=== PATIENT | male | born 1990 | race Caucasian/White ===

== ENCOUNTER 2024-01-16 13:14 | Emergency (ER) | payer MEDICAID, SELFPAY ==
--- NOTE | ~2024-01-16 | CT_ITS ---
EXAMINATION: CT INNER EAR TEMPORAL BONES WITHOUT CONTRAST CLINICAL INFORMATION: Left-sided mastoid tenderness.. COMPARISON: None available. TECHNIQUE: Multidetector helical imaging of the temporal bones was performed in the axial plane without contrast. Generation of oblique axial and coronal reformatted projections. This CT examination was performed using dose optimization techniques as appropriate, variously including the following: *Automated exposure control. *Adjustment of mA and/or kV according to patient size (this includes techniques or standardized protocols for targeted exams where dose is matched to indication/reason for exam; i.e. extremities or head). *Use of iterative reconstruction technique. DLP: 330 mGy-cm FINDINGS: Right Temporal Bone: No periauricular soft tissue abnormalities. Small volume of amorphous material within the deep aspect of the external auditory canal suggestive of cerumen (not directly abutting the tympanic membrane). Otherwise, the external auditory canal is normal in appearance. The tympanic membrane is normal. The ossicular chain is intact. No soft tissue abnormality within the middle ear. The mastoid antrum and additional mastoid air cells remain well aerated. The sigmoid plate is intact. Normal ossification of the bony labyrinth. Normal appearance of the cochlea, vestibule, and semicircular canals. The vestibular aqueduct is normal. Normal appearance of the labyrinthine, geniculate, tympanic, and mastoid segments of the facial nerve. Normal appearance of the internal auditory canal. The cochlear aperture is normal. Normal appearance of the carotid canal and jugular foramen. Left Temporal Bone: Moderate edema of the left periauricular soft tissues without discrete drainable soft tissue collection. Moderate, slightly irregular, circumferential soft tissue thickening of the left external auditory canal. No overt osseous erosive changes. The tympanic membrane is partially obscured by abutting soft tissue attenuating material but largely appears intact.. The ossicular chain is intact. Moderate mucosal thickening/fluid throughout the middle ear cavity. The mastoid antrum remains well aerated. Small volume mastoid effusion throughout the remainder of the mastoid air cells. The sigmoid plate is intact. Normal ossification of the bony labyrinth. Normal appearance of the cochlea, vestibule, and semicircular canals. The vestibular aqueduct is normal. Normal appearance of the labyrinthine, geniculate, tympanic, and mastoid segments of the facial nerve. Normal appearance of the internal auditory canal. The cochlear aperture is normal. Normal appearance of the carotid canal and jugular foramen. Other: The temporomandibular joints are normal in appearance bilaterally. No demonstrated intracranial abnormalities of the visualized skull base. No significant abnormalities of the visualized orbits. Mild mucosal thickening of the paranasal sinuses. Mild leftward nasoseptal deviation. No abnormal contours of the visualized pharynx. CT/CT mastoid IMPRESSION: 1. Moderate edema of the left periauricular soft tissues with moderate soft tissue thickening of the left external auditory canal. No discrete drainable soft tissue collection nor osseous erosive changes. Moderate mucosal thickening/fluid throughout the left middle ear cavity. Findings are suggestive of otitis externa/media in the appropriate clinical setting. 2. Normal CT appearance of the right-sided temporal bone. Electronically signed by: Terrence Esteves DO 01/16/2024 03:50 PM EDT
[2024-01-16 13:39] VITALS: BP 162/99; PULSE 118; RESP 20; TEMP 39.2; O2SAT 99; BMI 42.8
--- NOTE | 2024-01-16 13:40 | ED.GENADULT ---
HPI - General Adult General Chief complaint: Ear Problems Stated complaint: ear swollen, burning sensation, loss of hearing Time Seen by Provider: 01/16/24 14:31 Source: patient Mode of arrival: ambulatory Limitations: no limitations History of Present Illness ED Provider: Benjamin Slater PA-C HPI narrative: 33-year-old male presents the ER for evaluation of left ear pain, swelling, redness for the last 2 days it has been worsening after he cleaned his ear with a Q-tip. He reports the outside of his ear is significantly swollen and he can not hear from the ear. He states the area is red and warm to the touch and significantly painful. The pain is 8/10. He denies any recent swimming. He denies any history of recurrent ear infections. He is not diabetic. He denies any pain with opening and closing of his mouth. No dental pain. No URI symptoms. No fever or chills at home. MD complaint: left ear pain and swelling, left sided hearing loss Onset (ago): day(s) Location: face Radiation: distal Severity: severe Severity scale (1-10): 8 Quality: aching Pain Consistency: constant Relieving factors: medication Exacerbating factors: movement Associated symptoms: headaches Treatments prior to arrival: none Related Data Previous Rx's ?Medication ?Instructions ?Recorded amoxicillin 875 mg-potassium 1 tab PO BID #20 tabs 01/16/24 clavulanate 125 mg tablet ciprofloxacin 0.3 %-dexamethasone 4 drp otic (ears) BID 7 days #7.5 01/16/24 0.1 % ear drops,suspension mL ibuprofen 600 mg tablet 600 mg PO Q8H PRN fever or pain 01/16/24 #20 tabs Allergies Allergy/AdvReac Type Severity Reaction Status Date / Time No Known Allergies Allergy Verified 01/16/24 13:41 Review of Systems Review of Systems: Yes all other systems are reviewed and are negative PMFSH Social History Social History Smoked in Last 30 Days: No Use of substances other than those prescribed or required for medical reasons: No Advance Directives: No Do you have a plan to hurt others: No Plan Physical Exam ED Vital Signs: Vital Signs - 24 hr 01/16/24 13:39 01/16/24 14:00 01/16/24 16:02 Temperature 102.6 F H 102 F H 99.3 F Pulse Rate 118 H 110 H 107 H Respiratory Rate 20 16 18 Blood Pressure 162/99 H 147/94 H 148/80 H Pulse Oximetry 99 100 96 Oxygen Delivery Method Room Air Room Air Room Air BMI result Body Mass Index 42.8 Appearance: Alert. Oriented X3. No acute distress. Head: normocephalic, atraumatic. Eyes: Pupils equal, round and reactive to light. ENT: Pharynx normal. No tonsillar swelling or exudate. Left external ear with significant swelling, erythema, tenderness, warmth associated with the preauricular space and mastoid area with tenderness of the left mastoid. No area of fluctuance or induration. Hearing loss noted in the left ear. No drainage from the ear. Yellow crusting of the skin Neck: Normal inspection. Neck supple. CVS: Normal heart rate and rhythm. Pulses normal. Respiratory: No respiratory distress. Breath sounds normal. Abdomen: Soft and nontender. +BS x4 Skin: Skin warm and dry. Normal skin color. Normal skin turgor. No rashes. Extremities: No lower extremity edema. No joint swelling. Neuro/psych: Oriented X 3. No motor deficit. No sensory deficit. CN II-XII intact. Normal speech and cognition. Course Course Course Narrative: RME performed by Belia Hill PA-C. Patient is a 33 year old assigned male at presenting to the emergency department with left ear swelling. Patient states he was cleaning it out with a q tip and may have scratched the inside. Detailed physical exam and review of systems are deferred to the stone engraver. Labs ordered. Patient placed back in the waiting room pending room availability and results. Medications Administered Discontinued Medications Generic Name Dose Route Start Last Admin Trade Name Gregq PRN Reason Stop Dose Admin Acetaminophen 975 mg 01/16/24 14:31 01/16/24 14:36 Acetaminophen 325 Mg Tablet PO 01/16/24 14:32 975 mg ONCE ONE Administration Ceftriaxone Sodium 1 gm/ 50 mls @ 100 mls/hr 01/16/24 14:40 01/16/24 15:14 Sodium Chloride IV 01/16/24 15:09 100 mls/hr ONCE ONE Administration Lactated Ringer's 1,000 mls @ 999 mls/hr 01/16/24 15:15 01/16/24 15:14 Lr IV 01/16/24 16:15 999 mls/hr .Q1H1M SAM Administration Ketorolac Tromethamine 30 mg 01/16/24 15:02 01/16/24 15:14 Ketorolac Tromethamine 30 Mg/Ml Vial IVPUSH 01/16/24 15:03 30 mg ONCE ONE Administration Neomycin/Polymyxin/Hydrocortisone 4 drop 01/16/24 14:40 01/16/24 15:14 Neomycin/Polymyxin/Hc Otic Sasha Bottle EAR-LEFT 01/16/24 14:41 4 drop ONCE ONE Administration Medical Decision Making Medical Decision Making [facility] Narrative: 33-year-old male with no significant medical history presents to the ER for evaluation of 2 days of worsening left ear pain, swelling, hearing loss after using Q-tips. No recent swimming. On arrival to the ER he is febrile, tachycardic. Exam is concerning for significant otitis externa, unable to assess for otitis media given the canal is swollen closed. He has mastoid tenderness so there was concern for mastoiditis. CT scan was performed which does not show any drainable collection or inflammation of the mastoid bone. Patient was treated with IV antibiotics, IV fluids, antipyretics with improvement in his symptoms. Vital signs improved. Will discharge patient home with treatment for otitis media and otitis externa. Return precautions discussed. Stable for DC home Differential Diagnosis Differential Diagnoses: The differential diagnosis associated with the presentation includes Otitis externa, otitis media, mastoiditis, sepsis Admission/Observation Consideration of admission/observation: Escalation of care including admission/observation considered Lab Data [facility] Lab Attestation statement: I reviewed the patient's lab results. Leukocytosis 01/16/24 14:10 01/16/24 14:10 Labs: Lab Results 01/16/24 Range/Units 14:10 WBC 14.6 H (4.8-10.8) X10*3/uL RBC 5.08 (4.60-5.80) X10*6/uL Hgb 13.9 L (14.0-18.0) g/dl Hct 42.2 (42.0-52.0) % MCV 83.1 (80.0-98.0) fL MCH 27.4 (27.0-33.0) pg MCHC 32.9 (31.0-36.0) g/dl RDW 13.2 (11.0-16.0) % Plt Count 239 (160-400) X10*3/uL MPV 11.4 (9.4-12.4) fL Immature Gran % (Auto) 0.7 H (0.0-0.4) % Neut % (Auto) 82.8 H (45-73) % Lymph % (Auto) 8.0 L (20-40) % Parke % (Auto) 8.1 (2-11) % Eos % (Auto) 0.1 (0-4) % Baso % (Auto) 0.3 (0-2) % Lymph # (Auto) 1.2 (1.2-4.9) X10*3/uL Parke # (Auto) 1.2 (0.1-1.2) X10*3/uL Eos # (Auto) 0.0 (0.0-0.4) X10*3/uL Baso # (Auto) 0.0 (0.0-0.2) X10*3/uL Abs Immat Gran (auto) 0.10 H (0.00-0.03) X10*3/uL Absolute Neuts (auto) 12.1 H (2.0-8.3) x10*3/uL Absolute Nucleated RBC 0.000 (0.0-0.012) X10*3/uL Nucleated RBC % (auto) 0.0 (0.0-0.2) /100WBC ESR 43 H (0-15) MM/HR Sodium 137 (135-145) mmol/L Potassium 3.8 (3.3-5.1) mmol/L Chloride 100 (96-108) mmol/L Carbon Dioxide 30 H (22-29) mmol/L Anion Gap 11 L (12-20) BUN 8 L (9-16) mg/dL Creatinine 1.05 (0.5-1.4) mg/dL Estim Creat Clear Calc 145.6 Estimated GFR > 60 Random Glucose 115 (60-115) mg/dL Calcium 9.3 (8.4-10.2) mg/dL Magnesium 1.8 (1.6-2.6) mg/dL Total Bilirubin 1.2 H (0.0-1.0) mg/dL AST 40 H (5-37) U/L ALT 60 H (0-40) U/L Alkaline Phosphatase 100 (39-117) U/L C-Reactive Protein 11.54 H (< or = 0.50) mg/dL Total Protein 8.5 H (6.5-8.0) g/dL Albumin 4.1 (3.5-5.0) g/dL Independent Interpretation I performed an independent interpretation of an: CT Scan Interpretation: No drainable abscess, no significant inflammation of the mastoid bone Radiology Impression Discussion of test interpretation with radiology: I have reviewed the radiologist's reading. Radiologist Impression: CT/CT mastoid IMPRESSION: 1. Moderate edema of the left periauricular soft tissues with moderate soft tissue thickening of the left external auditory canal. No discrete drainable soft tissue collection nor osseous erosive changes. Moderate mucosal thickening/fluid throughout the left middle ear cavity. Findings are suggestive of otitis externa/media in the appropriate clinical setting. 2. Normal CT appearance of the right-sided temporal bone. Prescription Management I considered prescription management with: Pain Medication and Antibiotic Critical Care Time Critical Care Time Critical Care Time: Yes Total Critical Care Time: 32 Attestation: I have personally provided critical care time exclusive of time spent on separately billable procedures. Time includes review of lab data, radiology results, bed side re-evaluation and monitoring for potential decompensation. Intervention performed as documented. Discharge Plan Discharge Clinical Impression: Otitis externa, Otitis media Patient Disposition: Home, Self-Care Instructions: Otitis Externa (DC), Ear Infection (ED) Additional Instructions: You have a significant outer ear infection. Take the prescribed antibiotics as directed, do not miss any doses complete the entire course or even if you are feeling better. Use the prescribed antibiotic drops 2 times per day. The ear wick will fall out once the swelling is improved. Do not get any water in your ear Follow-up with your doctor as needed. If you develop new or worsening symptoms call 911 or come back to the ER for further evaluation. Prescriptions: New amoxicillin-pot clavulanate 875-125 mg tablet 1 tab PO BID Qty: 20 0RF ciprofloxacin-dexamethasone 0.3-0.1 % drops,suspension 4 drp otic (ears) BID 7 Days Qty: 7.5 0RF ibuprofen 600 mg tablet 600 mg PO Q8H PRN (Reason: fever or pain) Qty: 20 0RF Stand Alone Forms: Work/School Release Print Language: Maori
[2024-01-16 14:00] VITALS: BP 147/94; PULSE 110; RESP 16; TEMP 38.8; O2SAT 100
[2024-01-16 14:18] LABS: MANUAL DIFF FLAG NO
[2024-01-16 14:25] LABS: Basophils Percent Auto 0.3 % (0-2); Eosinophils Percent Auto 0.1 % (0-4); Hematocrit 42.2 % (42.0-52.0); Hemoglobin 13.9 g/dl (14.0-18.0); Imm Gran Pct Auto 0.7 % (0.0-0.4); Lymphocytes Absolute Auto 1.2 X10*3/uL (1.2-4.9); Mean Corpuscular HGB Conc 32.9 g/dl (31.0-36.0); Mean Corpuscular Hemoglobin 27.4 pg (27.0-33.0); Mean Corpuscular Volume 83.1 fL (80.0-98.0); Mean Platelet Volume 11.4 fL (9.4-12.4); Monocytes Absolute Auto 1.2 X10*3/uL (0.1-1.2); Monocytes Percent Auto 8.1 % (2-11); Neutrophils Absolute Auto 12.1 x10*3/uL (2.0-8.3); Neutrophils Percent Auto 82.8 % (45-73); Platelet Count 239 X10*3/uL (160-400); Red Blood Count 5.08 X10*6/uL (4.60-5.80); Red Cell Distribution Width 13.2 % (11.0-16.0); White Blood Count 14.6 X10*3/uL (4.8-10.8)
[2024-01-16 14:35] LABS: Alanine Aminotransferase 60 U/L (0-40); Albumin Level 4.1 g/dL (3.5-5.0); Alkaline Phosphatase 100 U/L (39-117); Anion Gap 11 (12-20); Aspartate Amino Transferase 40 U/L (5-37); Bilirubin Total 1.2 mg/dL (0.0-1.0); Blood Urea Nitrogen 8 mg/dL (9-16); C Reactive Protein 11.54 mg/dL (< or = 0.50); Calcium 9.3 mg/dL (8.4-10.2); Carbon Dioxide 30 mmol/L (22-29); Chloride 100 mmol/L (96-108); Creatinine Clr Calc Pharmacy 145.6; Estimated Glomerular Filt Rate > 60; Glucose Random 115 mg/dL (60-115); Magnesium 1.8 mg/dL (1.6-2.6); Potassium 3.8 mmol/L (3.3-5.1); Sodium 137 mmol/L (135-145); Total Protein 8.5 g/dL (6.5-8.0)
[2024-01-16] MEDS: Acetaminophen 325 MG TABLET 975 MG PO (14:36)
[2024-01-16 15:03] LABS: Erythrocyte Sedimentation Rate 43 MM/HR (0-15)
[2024-01-16] MEDS: Ketorolac Tromethamine 30 MG/ML VIAL IVPUSH (15:14)
[2024-01-16] MEDS: cefTRIAXone sodium 1 GM in 0.9 % Sodium Chloride 50 ML IV (15:14)
[2024-01-16] MEDS: NeoMYCIN/Polymyxin/HC Otic Sol BOTTLE 4 DROP EAR-LEFT (15:14)
[2024-01-16] MEDS: Lactated Ringers 1,000 ML 999 ML IV (15:14)
[2024-01-16 16:02] VITALS: BP 148/80; PULSE 107; RESP 18; TEMP 37.4; O2SAT 96
[2024-01-16 16:34] VITALS: BP 148/80; PULSE 107; RESP 18; TEMP 37.4; O2SAT 96
== END 2024-01-16 16:20 | disposition home or self-care (01) ==
PROVIDERS: Physician Assistant Medical; Emergency Provider Emergency Medicine Emergency Medical Services
DX: H60.92 Unspecified otitis externa, left ear (principal); H66.92 Otitis media, unspecified, left ear
CPT/HCPCS: 36415; 70481; 80053; 83735; 85025; 85652; 86140; 96365; 96375; 99284; J0696; J1885; J7120